=== PATIENT | female | born 1980 | race Hispanic/Latino ===

== ENCOUNTER 2017-12-12 12:16 | Outpatient (CLI) | payer OTHER ==
[2017-12-12 12:38] LABS: Hemoglobin 12.8 g/dL (12.0-16.0); Mean Corpuscular Hemoglobin 31.6 pg (27.0-31.0); Mean Corpuscular Volume 98.7 fl (81.0-99.0); Mean Platelet Volume 9.3 fL (7.4-10.4); Platelet Count 271 thou/uL (130-400); RBC Distribution Width 11.6 % (11.5-14.5); Red Blood Cell (RBC) Count 4.06 mill/uL (4.20-5.40); White Blood Cell (WBC) Count 7.9 thou/uL (4.8-10.8)
== END 2017-12-12 12:17 | disposition home or self-care (01) ==
LOC: LABBT 12:16
PROVIDERS: ATTEND Orthopaedic Surgery
DX: Z01.812 Encounter for preprocedural laboratory examination (principal); M75.102 Unspecified rotator cuff tear or rupture of left shoulder, not specified as traumatic
CPT/HCPCS: 85027

== ENCOUNTER 2017-12-13 09:32 | Day surgery (SDC) | payer OTHER ==
[2017-12-12 12:10] VITALS: BMI 32.9
[2017-12-13] MEDS ORDERED: CEFAZOLIN/Water 2 GM/20 ML SYRINGE ONE (09:51)
[2017-12-13] MEDS ORDERED: Midazolam HCl 2 mg/2 ml Vial ONE (10:18)
[2017-12-13] MEDS ORDERED: Fentanyl 100 MCG/2 ML VIAL ONE (10:18)
[2017-12-13] MEDS ORDERED: Ketorolac Tromethamine 30 MG/ML VIAL IVP PRN (10:28)
[2017-12-13] MEDS ORDERED: Ropivacaine 0.2% 550 ML 550 ML NERVE BLCK SCH (10:28)
[2017-12-13] MEDS ORDERED: HYDROcodone/Acetaminophen 10/325 mg Tablet PO PRN ×2 (10:28)
[2017-12-13] MEDS ORDERED: Promethazine HCl 25 MG/ML VIAL IM PRN (10:28)
[2017-12-13] MEDS ORDERED: Ondansetron HCl/PF 4 MG/2 ML Vial IVP PRN (10:28)
[2017-12-13] MEDS ORDERED: traMADol HCl 50 MG TAB PO PRN ×2 (10:28)
[2017-12-13] MEDS ORDERED: Zolpidem Tartrate 5 MG TAB PO PRN (10:28)
[2017-12-13] MEDS ORDERED: Fentanyl 100 MCG/2 ML VIAL IV PRN (10:29)
[2017-12-13] MEDS ORDERED: Bupivacaine/Epinephrine 0.25% 30 ML VIAL ONE (12:27)
[2017-12-13] MEDS ORDERED: Ropivacaine 0.2% HCl/PF (40 MG/20 ML VIAL) ONE (13:34)
[2017-12-13] MEDS ORDERED: Ropivacaine 0.5% HCl/PF (150 MG/30 ML VIAL) ONE (13:34)
[2017-12-13] MEDS ORDERED: PROPOFOL 200 MG/20 ML VIAL ONE (13:58)
[2017-12-13] MEDS ORDERED: Dexamethasone 20 MG/5 ML VIAL ONE (13:58)
[2017-12-13] MEDS ORDERED: Lidocaine 1% PF 5 ML VIAL ONE (13:58)
[2017-12-13] MEDS ORDERED: Glycopyrrolate 0.2 MG/ML 5 ML SYRINGE ONE (13:58)
[2017-12-13] MEDS ORDERED: Ketorolac Tromethamine 30 MG/ML VIAL ONE (13:58)
[2017-12-13] MEDS ORDERED: Ondansetron HCl/PF 4 MG/2 ML Vial ONE (13:58)
[2017-12-13] MEDS ORDERED: Promethazine HCl 25 MG/ML VIAL ONE (15:05)
--- NOTE | 2017-12-14 12:49 | OP ---
DATE OF OPERATION: 12/13/2017 PREOPERATIVE DIAGNOSIS: Left full thickness high-grade rotator cuff tear. POSTOPERATIVE DIAGNOSIS: Left full thickness high-grade rotator cuff tear. PROCEDURE PERFORMED: Left rotator cuff repair. STAFF: Claudio Christy M.D. ANESTHESIA: Sue. The patient received a general intubation interscalene block. ESTIMATED BLOOD LOSS: Less than 20 mL TOURNIQUET TIME: None. IMPLANTS: A corkscrew and a 5.5 SwiveLock Arthrex. ANTIBIOTICS: Ancef 2 grams. COMPLICATIONS: None. HISTORY OF PRESENT ILLNESS: Ms. Dickerson is a pleasant 37-year-old female who presented to me after injuring her left shoulder 09/02. She was weight lifting, had pain with overhead activities. 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 The patient's pain is 5/10 to 9/10. Discussed with patient the risks and benefits of arthroscopic evaluation of rotator cuff repair. Discussed risks and benefits of surgery to include pain, scar, bleeding, infection, damage to vital structures, decreased range of motion or strength, failure of procedure, continued pain despite surgical intervention, damage to vital structures, loss of life or limb. The patient understood the risks and benefits of procedure and elected to proceed. PROCEDURE IN DETAIL: Time out was performed designating the patient's left upper extremity as the operative site, based on site, consents and markings. After completion of timeout, the patient anterior portal was placed. I placed a spinal needle into anterior portal position decompressed and look at the joint. The joint had pristine articular cartilage. There was no SLAP tear, nice biceps and subscapularis was in place. No osteophytes, had a nice reduced shoulder. The capsule was inserted inside, I did not see the tear within the shoulder. I then moved subacromial, there was a slight amount of bursa, but there was an obvious high grade tear of the insertion of the supraspinatus with footprint which I documented. I debrided the bone, we placed a 5.[address], passed four sutures through in a horizontal mattress fashion, sewed them together and placed a lateral row to help compress that tissue down to the bone. I placed one more pass through, just a little dog ear, to help to lay it down more flat. On completion of this, I placed my 5.5 SwiveLock, compressed it in place, washed, took final pictures to ensure I had overall alignment, I liked my position, I then closed with 3-0 nylon. The patient will be placed in a sling, elbow, wrist, and hand motion, I will see her back in 2 weeks. CHIP
== END 2017-12-13 17:45 | disposition home or self-care (01) ==
LOC: SDC 09:32
PROVIDERS: ATTEND Orthopaedic Surgery
PROC: 0LQ14ZZ Repair Right Shoulder Tendon, Percutaneous Endoscopic Approach (ICD-10-PCS; principal; 2017-12-13)
DX: M75.101 Unspecified rotator cuff tear or rupture of right shoulder, not specified as traumatic (principal)
CPT/HCPCS: 96374; A4306; C1713; J1100; J1885; J2001; J2250; J2405; J2550; J2704; J2795; J3010